=== PATIENT | female | born 1995 | race Caucasian/White ===

== ENCOUNTER → 2024-08-22 13:13 | Outpatient (BNVA) | payer OTHER, SELFPAY | PROVIDERS: Visit Provider Registered Nurse | DX: G57.01 Lesion of sciatic nerve, right lower limb (principal) | CPT/HCPCS: 99202 ==

== ENCOUNTER → 2024-10-10 09:24 | Outpatient (BNVA) | payer OTHER, SELFPAY | PROVIDERS: Visit Provider Registered Nurse | DX: G57.01 Lesion of sciatic nerve, right lower limb (principal); Z02.79 Encounter for issue of other medical certificate | CPT/HCPCS: 99213 ==